=== PATIENT | male | born 1985 | race American Indian/Alaskan Native ===

== ENCOUNTER 2021-03-30 10:08 | Inpatient (IN) ==
--- NOTE | 2021-03-30 10:33 | Emergency Department Note ---
History of Present Illness General Chief complaint: Knee Injury/Pain Time Seen by Provider: 03/30/21 10:12 Source: patient Mode of arrival: ambulatory Limitations: language barrier (Interpretation was provided by one of our fluent Croatian-speaking nurses) History of Present Illness This patient is a healthy 85-year-old male comes with right knee pain. 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 came to a point Wednesday he had a small mount of purulent drainage. Is been red and tender anteriorly and slightly laterally. No fever at present but he says if fever chills and bone aches at night. He used Tylenol for pain this morning. Denies any allergies not had the Covid vaccine. No numbness or weakness. The pain is 7 out of 10 but goes to 10 out of 10 Home Medications Medication Instructions Recorded Confirmed Type acetaminophen 650 mg 1,300 mg PO Q12H PRN 03/30/21 03/30/21 History tablet,extended release (Tylenol Arthritis Pain) Allergies Allergy/AdvReac Type Severity Reaction Status Date / Time No Known Allergies Allergy Unverified 03/30/21 10:40 Past Med/Surg History Social History Smoking Status: Current every day smoker Tobacco Type: Cigarettes Preferred Language: Croatian Communication Tools: IPad Feels Safe at Home: Yes Immunizations: Past medical history denies any. Denies allergies denies diabetes Social historyshe is from [place] Review of Systems A total of 10 systems reviewed and were otherwise negative Physical Exam Vital Signs Vital Signs - 24 hr 03/30/21 10:08 03/30/21 11:06 03/30/21 11:35 Temperature 37.3 C Temperature Source Oral Pulse Rate 74 75 Pulse Rate [Right Finger] 74 Pulse Rate from SpO2 Sensor Pulse Rhythm Regular Pulse Rhythm [Right Finger] Pulse Strength [Right Finger] Respiratory Rate 18 20 20 Respiratory Effort / Characteristics Non-Labored Spontaneous Non-Labored Spontaneous Respiratory Depth Normal Respiratory Pattern Regular Blood Pressure 128/70 Blood Pressure [Right Arm] 128/70 Blood Pressure Mean 89 Blood Pressure Mean [Right Arm] 89 Blood Pressure Position Lying Blood Pressure Position [Right Arm] Lying Pulse Oximetry 99 98 Oxygen Delivery Method Room Air Room Air Sepsis Recent Fever Within 48 Hours Yes Sepsis New/Unexplained Change in Mental Status N/A Sepsis Action Taken by Nursing No Action Required 03/30/21 11:39 03/30/21 12:00 03/30/21 12:30 Temperature Temperature Source Pulse Rate 79 Pulse Rate [Right Finger] 71 81 Pulse Rate from SpO2 Sensor 79 Pulse Rhythm Pulse Rhythm [Right Finger] Regular Regular Pulse Strength [Right Finger] Normal Normal Respiratory Rate 20 20 18 Respiratory Effort / Characteristics Non-Labored Spontaneous Non-Labored Spontaneous Respiratory Depth Normal Normal Respiratory Pattern Regular Regular Blood Pressure 121/70 Blood Pressure [Right Arm] 128/69 120/83 Blood Pressure Mean 87 Blood Pressure Mean [Right Arm] 88 95 Blood Pressure Position Blood Pressure Position [Right Arm] Sitting Sitting Pulse Oximetry 99 99 97 Oxygen Delivery Method Room Air Room Air Sepsis Recent Fever Within 48 Hours Sepsis New/Unexplained Change in Mental Status Sepsis Action Taken by Nursing 03/30/21 13:00 03/30/21 13:30 03/30/21 14:00 Temperature Temperature Source Pulse Rate 74 79 83 Pulse Rate [Right Finger] Pulse Rate from SpO2 Sensor 73 78 82 Pulse Rhythm Pulse Rhythm [Right Finger] Pulse Strength [Right Finger] Respiratory Rate 21 22 17 Respiratory Effort / Characteristics Respiratory Depth Respiratory Pattern Blood Pressure 109/80 96/80 L 135/74 Blood Pressure [Right Arm] Blood Pressure Mean 89 85 94 Blood Pressure Mean [Right Arm] Blood Pressure Position Blood Pressure Position [Right Arm] Pulse Oximetry 100 99 96 Oxygen Delivery Method Sepsis Recent Fever Within 48 Hours Sepsis New/Unexplained Change in Mental Status Sepsis Action Taken by Nursing 03/30/21 14:30 03/30/21 15:00 Temperature Temperature Source Pulse Rate 88 78 Pulse Rate [Right Finger] Pulse Rate from SpO2 Sensor 81 Pulse Rhythm Pulse Rhythm [Right Finger] Pulse Strength [Right Finger] Respiratory Rate 18 16 Respiratory Effort / Characteristics Respiratory Depth Respiratory Pattern Blood Pressure 122/72 127/76 Blood Pressure [Right Arm] Blood Pressure Mean 88 93 Blood Pressure Mean [Right Arm] Blood Pressure Position Blood Pressure Position [Right Arm] Pulse Oximetry 98 Oxygen Delivery Method Sepsis Recent Fever Within 48 Hours Sepsis New/Unexplained Change in Mental Status Sepsis Action Taken by Nursing General: Well developed well nourished young male who appears in no acute distr ess, breathing comfortably on room air. Normal speech HEENT: Normal cephalic atraumatic. Pupils are equal round and reactive to light. Extraocular movements are intact. Oropharynx is pink with moist mucous membranes. No swelling of the mouth lips or tongue. Neck: Supple with a midline trachea. No meningeal signs or stiffness, no JVD or bruits. No Stridor. Chest: Clear to auscultation bilaterally. No wheezes or rhonchi. No increased work of breathing. Heart: Regular rate and rhythm without murmurs or gallops. Abdomen: Soft nontender, nondistended without rebound guarding or rigidity. Extremities: No cyanosis clubbing or edema. No calf tenderness or assymetry. The right knee is red anteriorly and below the joint. There is a small pustule. It is very tender with movement. Is tender laterally as well. I do not appreciate an effusion. There is no fluctuance or expressible pus Spine/Back. Non tender to palpation. No CVA tenderness Skin: Good turgor without rashes. Neurologic exam: Cranial nerves two through 12 are intact. Motor and sensation are intact and symmetrical throughout. Course Administered Medications Discontinued Medications Ceftriaxone Sodium (Ceftriaxone Sodium 1000mg/50ml D5w) Confirm Administered Dose 1,000 mg IV .STK-MED ONE Stop: 03/30/21 11:25 Last Admin: 03/30/21 11:36 Dose: 1,000 mg Documented by: [id number] Vancomycin HCl 1,250 mg/ (Sodium Chloride) 275 mls @ 200 mls/hr IV TODAY@1100 DIO Stop: 03/30/21 12:23 Last Infusion: 03/30/21 13:37 Dose: 0 mls/hr Documented by: [id number] Admin: 03/30/21 12:14 Dose: 200 mls/hr Documented by: [id number] Ceftriaxone Sodium 1,000 mg/ (Dextrose) 60 mls @ 120 mls/hr IV TODAY@1100 DIO Stop: 03/30/21 11:29 Last Admin: 03/30/21 11:36 Dose: Not Given Documented by: [id number] Sodium Chloride (Nss 1000ml) 1,000 mls @ 999 mls/hr IV .Q1H1M ONE Stop: 03/30/21 14:44 Last Infusion: 03/30/21 15:15 Dose: 0 mls/hr Documented by: [id number] Admin: 03/30/21 14:15 Dose: 999 mls/hr Documented by: [id number] Ketorolac Tromethamine (Ketorolac Tromethamine 15 Mg/Ml Vial) 15 mg IV NOW ONE Stop: 03/30/21 12:03 Last Admin: 03/30/21 12:14 Dose: 15 mg Documented by: [id number] Medical Decision Making Differential Diagnosis bursitis, septic bursitis, knee effusion, cellulitis, abscess Medical Records Attestation: I reviewed the patient's medical records. Home Medications Current Medication List: was personally reviewed by me Laboratory Data Attestation: I reviewed the patient's lab results. Result diagrams: 03/30/21 11:09 03/30/21 11:09 Lab Results 03/30/21 03/30/21 03/30/21 Range/Units 11:09 11:09 11:09 WBC 15.88 H (4.8-10.8) K/uL RBC 3.82 L (4.7-6.1) M/uL Hgb 13.3 L (14.0-18.0) g/dL Hct 37.6 L (42-52) % MCV 98.4 (80-100) fL MCH 34.8 H (25-34) pg MCHC 35.4 (32-36) g/dL RDW Std Deviation 42.7 (36.4-46.3) fL RDW Coeff of Nahid 12.0 (11.5-14.5) % Plt Count 255 (130-400) K/uL MPV 10.7 H (7.4-10.4) fL Immature Gran % (Auto) 0.2 % Neut % (Auto) 77.6 % Lymph % (Auto) 13.7 % [place] % (Auto) 7.6 % Eos % (Auto) 0.8 % Baso % (Auto) 0.1 % Neut # (Auto) 12.33 H (1.4-6.5) K/uL Lymph # (Auto) 2.18 (1.2-3.4) K/uL [place] # (Auto) 1.20 H (0.11-0.59) K/uL Eos # (Auto) 0.12 (0-0.5) K/uL Baso # (Auto) 0.02 (0-0.2) K/uL Immature Gran # (Auto) 0.03 H (0.00-0.02) K/uL ESR (0-15) mm/hr PT 9.8 (9.0-12.0) Seconds INR 1.0 (0.9-1.1) APTT 27.2 (21.0-31.0) Seconds PTT Ratio 1.0 Sodium 141 (136-145) mmol/L Potassium 3.8 (3.5-5.1) mmol/L Chloride 106 (98-107) mmol/L Carbon Dioxide 31 (21-32) mmol/L Anion Gap 4.0 (3-11) BUN 6 L (7-18) mg/dl Creatinine 0.80 (0.6-1.4) mg/dl Est Cr Clr Drug Dosing 97.6 ml/min Est GFR ( Amer) 132.3 ml/min Est GFR (Non-Af Amer) 114.1 ml/min BUN/Creatinine Ratio 7.7 L (10-20) Glucose 94 (70-99) mg/dl Lactate (0.4-2.0) mmol/L Calcium 8.9 (8.5-10.1) mg/dl Magnesium 2.3 (1.8-2.4) mg/dl Total Bilirubin 0.5 (0.2-1) mg/dl AST 126 H (15-37) U/L ALT 155 H (12-78) U/L Alkaline Phosphatase 111 (45-117) U/L C-Reactive Protein 14.10 H (0-0.29) mg/dl Total Protein 7.8 (6.4-8.2) gm/dl Albumin 3.4 (3.4-5.0) gm/dl Globulin 4.4 H (2.5-4.0) gm/dl Albumin/Globulin Ratio 0.8 L (0.9-2) COVID-19 Eval Order SARS-CoV-2 (PCR) (Negative) 03/30/21 03/30/21 03/30/21 Range/Units 11:09 11:22 12:34 WBC (4.8-10.8) K/uL RBC (4.7-6.1) M/uL Hgb (14.0-18.0) g/dL Hct (42-52) % MCV (80-100) fL MCH (25-34) pg MCHC (32-36) g/dL RDW Std Deviation (36.4-46.3) fL RDW Coeff of Nahid (11.5-14.5) % Plt Count (130-400) K/uL MPV (7.4-10.4) fL Immature Gran % (Auto) % Neut % (Auto) % Lymph % (Auto) % [place] % (Auto) % Eos % (Auto) % Baso % (Auto) % Neut # (Auto) (1.4-6.5) K/uL Lymph # (Auto) (1.2-3.4) K/uL [place] # (Auto) (0.11-0.59) K/uL Eos # (Auto) (0-0.5) K/uL Baso # (Auto) (0-0.2) K/uL Immature Gran # (Auto) (0.00-0.02) K/uL ESR 29 H (0-15) mm/hr PT (9.0-12.0) Seconds INR (0.9-1.1) APTT (21.0-31.0) Seconds PTT Ratio Sodium (136-145) mmol/L Potassium (3.5-5.1) mmol/L Chloride (98-107) mmol/L Carbon Dioxide (21-32) mmol/L Anion Gap (3-11) BUN (7-18) mg/dl Creatinine (0.6-1.4) mg/dl Est Cr Clr Drug Dosing ml/min Est GFR ( Amer) ml/min Est GFR (Non-Af Amer) ml/min BUN/Creatinine Ratio (10-20) Glucose (70-99) mg/dl Lactate 1.3 (0.4-2.0) mmol/L Calcium (8.5-10.1) mg/dl Magnesium (1.8-2.4) mg/dl Total Bilirubin (0.2-1) mg/dl AST (15-37) U/L ALT (12-78) U/L Alkaline Phosphatase (45-117) U/L C-Reactive Protein (0-0.29) mg/dl Total Protein (6.4-8.2) gm/dl Albumin (3.4-5.0) gm/dl Globulin (2.5-4.0) gm/dl Albumin/Globulin Ratio (0.9-2) COVID-19 Eval Order Covid19 at [facility] SARS-CoV-2 (PCR) (Negative) 03/30/21 Range/Units 12:34 WBC (4.8-10.8) K/uL RBC (4.7-6.1) M/uL Hgb (14.0-18.0) g/dL Hct (42-52) % MCV (80-100) fL MCH (25-34) pg MCHC (32-36) g/dL RDW Std Deviation (36.4-46.3) fL RDW Coeff of Nahid (11.5-14.5) % Plt Count (130-400) K/uL MPV (7.4-10.4) fL Immature Gran % (Auto) % Neut % (Auto) % Lymph % (Auto) % [place] % (Auto) % Eos % (Auto) % Baso % (Auto) % Neut # (Auto) (1.4-6.5) K/uL Lymph # (Auto) (1.2-3.4) K/uL [place] # (Auto) (0.11-0.59) K/uL Eos # (Auto) (0-0.5) K/uL Baso # (Auto) (0-0.2) K/uL Immature Gran # (Auto) (0.00-0.02) K/uL ESR (0-15) mm/hr PT (9.0-12.0) Seconds INR (0.9-1.1) APTT (21.0-31.0) Seconds PTT Ratio Sodium (136-145) mmol/L Potassium (3.5-5.1) mmol/L Chloride (98-107) mmol/L Carbon Dioxide (21-32) mmol/L Anion Gap (3-11) BUN (7-18) mg/dl Creatinine (0.6-1.4) mg/dl Est Cr Clr Drug Dosing ml/min Est GFR ( Amer) ml/min Est GFR (Non-Af Amer) ml/min BUN/Creatinine Ratio (10-20) Glucose (70-99) mg/dl Lactate (0.4-2.0) mmol/L Calcium (8.5-10.1) mg/dl Magnesium (1.8-2.4) mg/dl Total Bilirubin (0.2-1) mg/dl AST (15-37) U/L ALT (12-78) U/L Alkaline Phosphatase (45-117) U/L C-Reactive Protein (0-0.29) mg/dl Total Protein (6.4-8.2) gm/dl Albumin (3.4-5.0) gm/dl Globulin (2.5-4.0) gm/dl Albumin/Globulin Ratio (0.9-2) COVID-19 Eval Order SARS-CoV-2 (PCR) NEGATIVE (Negative) Imaging Data Attestation: I personally reviewed and interpreted this imaging study as follows: My Impression: Right knee x-rayno fracture. No large effusion seen. There is some soft tissue swelling in the area of the bursa Radiologist's Impression: Knee X-Ray 03/30/21 10:28 XR knee RT 1 or 2V routine CLINICAL HISTORY: right knee pain, ? bursitis COMPARISON: None FINDINGS: Alignment of the right knee is anatomic. No acute fracture. There is no osseous lesion. There may be a small joint effusion. Joint spaces are preserved. Note is made of pre and infrapatellar soft tissue swelling, most pronounced overlying the tibial tubercle. IMPRESSION: 1. No acute fracture. No osseous abnormality of the right knee. 2. Possible small right knee joint effusion. 3. Pre and infrapatellar soft tissue swelling. This may reflect bursitis. ACT 112: Negative or not required by law. Electronically signed by: Mike Zapata M.D. 03/30/2021 10:41 AM [facility] Narrative This Patient comes in as scribed above he has right knee pain it hurts worse with movement. I think he has more likely a bursitis possibly septic bursitis. IV access was established and blood work was obtained x-ray was obtained. He was reassessed frequently. He has had chills and body aches at home and does have a high white count and the area is red I think he does have a septic bursitis. X-ray does not show any large effusion in the joint. He was given IV Vanco and IV Rocephin as well as IV fluids. His sed rate and CRP are also elevated. I do think that he needs to be admitted/observed for IV antibiotics orthopedic consultation evaluations possible he could even need washout/surgery. I did discuss case Dr. Sauceda and they will see him in the hospital and the [facility] hospitalist also saw him will admit him for these measures. His Covid test was negative. Impression & Plan Septic infrapatellar bursitis of right knee, Acute knee pain, Lab test negative for COVID-19 virus Discharge Plan Visit Data Chief Complaint: Knee Injury/Pain ED Provider: Candido Stuart Discharge Problem: Septic infrapatellar bursitis of right knee, Acute knee pain, Lab test negative for COVID-19 virus Forms Stand Alone Forms: My [facility] [employer] Prescriptions Prescriptions: No Action acetaminophen [Tylenol Arthritis Pain] 650 mg Tablet Extended Release 1,300 mg PO Q12H PRN (Reason: Pain) RF: 0 Referrals Referrals: PCP,NO [Primary Care Provider] - Discharge Problem: Acute knee pain Qualifiers: Laterality: right Qualified Code(s): M25.561 - Pain in right knee
--- NOTE | 2021-03-30 10:43 | XRay Report ---
XR knee RT 1 or 2V routine CLINICAL HISTORY: right knee pain, ? bursitis COMPARISON: None FINDINGS: Alignment of the right knee is anatomic. No acute fracture. There is no osseous lesion. Th ere may be a small joint effusion. Joint spaces are preserved. Note is made of pre and infrapatellar soft tissue swelling, most pronounced overlying the tibial tubercle. IMPRESSION: 1. No acute fracture. No osseous abnormality of the right knee. 2. Possible small right knee joint effusion. 3. Pre and infrapatellar soft tissue swelling. This may reflect bursitis. ACT 112: Negative or not required by law. Electronically signed by: Mike Zapata M.D. 03/30/2021 10:41 AM
[2021-03-30] MEDS ORDERED: VANCOMYCIN HCL 1,250 MG in SODIUM CHLORIDE 0.9% 250 ML IV SCH (11:00)
[2021-03-30] MEDS ORDERED: cefTRIAXone SODIUM 1,000 MG in DEXTROSE 5% 50 ML IV SCH (11:00)
[2021-03-30] MEDS ORDERED: cefTRIAXone SODIUM 1000MG/50ML D5W IV ONE (11:24)
[2021-03-30 11:37] LABS: Basophils # (auto) 0.02 K/uL (0-0.2); Basophils % (auto) 0.1 %; Eosinophils # (auto) 0.12 K/uL (0-0.5); Eosinophils % (auto) 0.8 %; Hematocrit (blood only) 37.6 % (42-52); Hemoglobin 13.3 g/dL (14.0-18.0); Immature Granulocytes # (auto) 0.03 K/uL (0.00-0.02); Immature Granulocytes % (auto) 0.2 %; Lymphocytes # (auto) 2.18 K/uL (1.2-3.4); Lymphocytes % (auto) 13.7 %; Mean Corpuscular Hemoglobin 34.8 pg (25-34); Mean Corpuscular Hgb Conc 35.4 g/dL (32-36); Mean Corpuscular Volume 98.4 fL (80-100); Mean Platelet Volume 10.7 fL (7.4-10.4); Monocytes % (auto) 7.6 %; Neutrophils # (auto) 12.33 K/uL (1.4-6.5); Neutrophils % (auto) 77.6 %; Platelet Count 255 K/uL (130-400); RDW Standard Deviation 42.7 fL (36.4-46.3); Red Blood Count 3.82 M/uL (4.7-6.1); White Blood Count 15.88 K/uL (4.8-10.8)
[2021-03-30 11:53] LABS: Albumin Level 3.4 gm/dl (3.4-5.0); BUN Creatinine Ratio 7.7 (10-20); Calcium 8.9 mg/dl (8.5-10.1); Creatinine Clr Calc Pharmacy 97.6 ml/min; Est GFR (African American) 132.3 ml/min; Est GFR (Non-African American) 114.1 ml/min; Magnesium 2.3 mg/dl (1.8-2.4); Potassium 3.8 mmol/L (3.5-5.1)
[2021-03-30 11:56] LABS: Albumin Globulin Ratio 0.8 (0.9-2); Bilirubin,Total 0.5 mg/dl (0.2-1); C Reactive Protein 14.1 mg/dl (0-0.29); Globulin 4.4 gm/dl (2.5-4.0); Partial Thromboplastin Time 27.2 Seconds (21.0-31.0); Prothrombin Time 9.8 Seconds (9.0-12.0); Total Protein 7.8 gm/dl (6.4-8.2)
[2021-03-30] MEDS ORDERED: KETOROLAC TROMETHAMINE 15 MG/ML VIAL IV ONE (12:02)
[2021-03-30] MEDS ORDERED: SODIUM CHLORIDE 0.9% 1000ML 1,000 ML IV ONE (13:44)
[2021-03-30] MEDS ORDERED: VANCOMYCIN CONSULT ACTIVE PRN (16:19)
--- NOTE | 2021-03-30 17:59 | History & Physical Report ---
Date of Service March 30, 2021 Assessment & Plan (1) Septic infrapatellar bursitis of right knee: Plan: consult ortho. Place on antibitics vanco and ceftriaxone. will monitor cbc. WBC is currently elevated. may require tdap vaccine as it has been over 10 years since previous vaccine was beforte 10 year temi may hold until closer to discharge. Admission and Anticipated Discharge Date Admission Date: March 30, 2021 History of Present Illness Chief Complaint: right knee pain Primary Care Provider: NO PCP Micronesian speaking patient arrives to ER with subjective fever and right knee pain. 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 He reports he noticed his right knee became irritated on Wednesday and slowly this progress. He noticed the right knee has become red and tender to touch. He reports when he is working, he puts his knoee on the ground and he felt that a metal on the ground may have scretched his knee. He used Tylenol for pain this morning. Denies any allergies not had the Covid vaccine. No numbness or weakness. The pain is 7 out of 10 but goes to 10 out of 10 Allergies Allergy/AdvReac Type Severity Reaction Status Date / Time No Known Allergies Allergy Unverified 03/30/21 10:40 Home Medications Medication Instructions Recorded Confirmed Type acetaminophen 650 mg 1,300 mg PO Q12H PRN 03/30/21 03/30/21 History tablet,extended release (Tylenol Arthritis Pain) Past Med/Surg History Social History Smoking Status: Light tobacco smoker Tobacco Type: Cigarettes Hx Alcohol Use: Yes Hx Substance Use: Yes Preferred Language: Micronesian Communication Ability: Effective Communication Tools: IPad Chronometer Tester Required: Yes Beliefs That Will Affect Care: None Current Living Situation: Family Other Information That Helps Us Care for You: No Feels Safe at Home: Yes Safety Concerns: Feels Safe At This Time Assistive Devices: None Review of Systems Constitutional: + fever and + sweats Eyes: no blind spots and no diplopia Ear, Nose, Mouth, Throat: no ear pain and no ear trauma Respiratory: no cough and no change in sputum Cardiovascular: no chest pain and no chest pain with activity Gastrointestinal: no abdominal pain Genitourinary: no urinary frequency or no post-void dribbling Musculoskeletal: + joint pain Integumentary: no acne Psychiatric: no behavioral changes Endocrine: no polydipsia Hematologic / Lymphatic: no coagulopathy Allergy / Immunological: no lip swelling Physical Exam Constitutional: WD/WN, vitals as above Eyes: PERRL, conjunctivae normal, anicteric sclerae ENMT: external ear and nose normal, oropharynx normal Neck: trachea midline, no thyromegaly Respiratory: normal respiratory effort, lungs clear to auscultation Cardiovascular: RRR, no murmur, no edema Gastrointestinal (Abdomen): normal bowel sounds, soft, nontender, no hepatosplenomegaly Musculoskeletal: no cyanosis or clubbing, extremities motor strength 5/5 (redness around right infrapatellar bursa, tender to palpation.) Skin: + lesion (as noticed above. erlinda cut on prepatellar bursa) Neurologic: PERRL, EOMI, accommodation nl, no face palsy, no dysarthria Psychiatric: A+Ox3, euthymic affect Genitourinary: no testicular masses, no penis abnormality Results & Data Results & Data ([facility]) Vital Signs (Past 12 Hours) Vital Signs Temp Pulse Pulse Resp BP BP Pulse Ox 03/30/21 17:31 78 20 118/73 99 03/30/21 15:00 78 16 127/76 98 03/30/21 14:30 88 18 122/72 03/30/21 14:00 83 17 135/74 96 03/30/21 13:30 79 22 96/80 L 99 03/30/21 13:00 74 21 109/80 100 03/30/21 12:30 79 18 121/70 97 03/30/21 12:00 81 20 120/83 99 03/30/21 11:39 71 20 128/69 99 03/30/21 11:35 75 20 98 03/30/21 11:06 20 03/30/21 10:08 37.3 C 74 74 18 128/70 128/70 99 PG Care Time/CCT Total # of Minutes Spent Total Time Spent with Patient: Total time spent is greater than 50% in coordination of care (as documented) at patient's floor/unit and/or counseling patient: Coding Level of Care Code 71630 Initial Inpt Care Lvl 2 Diagnoses Septic infrapatellar bursitis of right knee M71.161; B96.89
[2021-03-30] MEDS: ACETAMINOPHEN 325 MG TAB PO PRN ×2 (18:18→23:44)
--- NOTE | 2021-03-30 19:26 | Pharmacy Report ---
Pharmacy Abx Initial Consult - Date of Service March 30, 2021 - Pharmacy Dosing Scope Date of Consult: 03/30/21 Consultation requested by: Dr. GREGG Pharmacy is consulted to initiate Vancomycin IV dosing therapy, order appropriate labs and adjust drug dose/frequency. - Subjective The patient is a 35 year old M admitted on 03/30/21 16:22. - Objective Height: 5 ft 2 in Weight: 58.7 kg Vital Signs (Past 12hrs): Vital Signs Temp Pulse Pulse Resp BP BP Pulse Ox 03/30/21 18:05 37.9 C H 82 18 138/88 100 03/30/21 17:31 78 20 118/73 99 03/30/21 15:00 78 16 127/76 98 03/30/21 14:30 88 18 122/72 03/30/21 14:00 83 17 135/74 96 03/30/21 13:30 79 22 96/80 L 99 03/30/21 13:00 74 21 109/80 100 03/30/21 12:30 79 18 121/70 97 03/30/21 12:00 81 20 120/83 99 03/30/21 11:39 71 20 128/69 99 03/30/21 11:35 75 20 98 03/30/21 11:06 20 03/30/21 10:08 37.3 C 74 74 18 128/70 128/70 99 Lab Results (24hrs): Laboratory Tests (24 Hours) 03/30/21 03/30/21 03/30/21 11:09 11:09 11:09 WBC 15.88 H Neut # (Auto) 12.33 H ESR 29 H Creatinine 0.80 Est Cr Clr Drug Dosing 97.6 C-Reactive Protein 14.10 H Micro Results: 03/30/21 11:09 Aerobic Blood Culture - Pending Blood Anaerobic Blood Culture - Pending 03/30/21 11:03 Aerobic Blood Culture - Pending Blood Anaerobic Blood Culture - Pending - Assessment & Plan Assessment 35 year old M with right knee redness and possible septic bursitis in this joint Plan Vancomycin for treatment of septic bursitis Vancomycin IV * Dosing by Vancomycin AUC Nomogram * Loading dose: 1250 mg (21.3 mg/kg) * Maintenance dose: 750 mg IV (12.8 mg/kg) every 8 hours per dosing nomogram * Goal trough level for septic bursitis: 13 to 17 mcg/mL * Trough level ordered for Thursday April 01, 2021 prior to the noon dose Pharmacy will continue to follow and will adjust dose/frequency as necessary. Thank you.
[2021-03-30] MEDS: VANCOMYCIN HCL 750 MG in SODIUM CHLORIDE 0.9% 250 ML IV SCH (19:56)
[2021-03-31] MEDS: VANCOMYCIN HCL 750 MG in SODIUM CHLORIDE 0.9% 250 ML IV SCH ×3 (05:14→19:38)
[2021-03-31 07:08] LABS: Creatinine Clr Calc Pharmacy 114.9 ml/min; Est GFR (African American) 141.4 ml/min
[2021-03-31] MEDS: ACETAMINOPHEN 325 MG TAB PO PRN ×3 (08:31→19:37)
[2021-03-31] MEDS: SODIUM CHLOR 0.45% + 20MEQ KCL 20 MEQ/1,000 ML BAG IV SCH ×2 (10:12→19:24)
[2021-03-31] MEDS: cefTRIAXone SODIUM 1,000 MG in DEXTROSE 5% 50 ML IV SCH (11:56)
[2021-03-31] MEDS ORDERED: ONDANSETRON INJ 2 MG/ML 2 ML VIAL IV PRN (12:03)
--- NOTE | 2021-03-31 12:06 | Hospitalist Progress Note ---
Date of Service March 31, 2021 Assessment & Plan (1) Septic infrapatellar bursitis of right knee: Plan: Continue vancomycin and ceftriaxone, blood cultures negative to date. Acetaminophen and dilaudid for pain. TDaP prior to discharge Appreciate orthopedics consult. 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 Occasional cramping in his foot. Right knee pain currently 6/10. Fever and chills reported overnight. Seen by orthopedics PA this morning and kept NPO for possible I&D today. Review of Systems Review of Systems: All systems reviewed & are unremarkable except as noted in HPI & below Physical Exam Constitutional: WD/WN, vitals as above Eyes: + anicteric sclerae; normal pupil size ENMT: Mouth: oral mucous membranes not dry Neck: trachea midline, no thyromegaly Respiratory: normal respiratory effort, lungs clear to auscultation Cardiovascular: RRR, no murmur, no edema Gastrointestinal (Abdomen): normal bowel sounds, soft, nontender, no hepatosplenomegaly Musculoskeletal: Pustules over inferior part of right knee with surrounding erythema extending approximately 10cm longitudinally. NV intact distally. Psychiatric: A+Ox3, euthymic affect Results & Data Results & Data ([facility]) Vital Signs (Past 12 Hours) Vital Signs Temp Pulse Resp BP Pulse Ox 03/31/21 11:47 36.9 C 03/31/21 07:38 37.2 C 84 16 135/83 99 PG Care Time/CCT Total # of Minutes Spent Total Time Spent with Patient: Total time spent is greater than 50% in coordination of care (as documented) at patient's floor/unit and/or counseling patient: Coding Level of Care Code 73044 Subseq Hosp Care Lvl 2 Diagnoses Septic infrapatellar bursitis of right knee M71.161; B96.89
[2021-03-31] MEDS: HYDROmorphone INJ 0.5 MG/0.5 ML SYR IV PRN ×2 (12:17→18:29)
--- NOTE | 2021-03-31 15:21 | Anesthesiology Consultation ---
Date of Service March 31, 2021 Assessment & Plan (1) Encounter for pre-operative examination: Chart Review Chart Review: Acceptable Risk for Surgery and Patient NOT seen in Pre Admission Testing Consults Requested none History Surgery Operation Date: 03/31/21 07:00 Proposed Procedures p Right Incision and Drainage Prepatellar Septic Bursitis - Saravanan Askew MD Height/Weight Height: 5 ft 2 in Weight: 58.7 kg Allergies Allergy/AdvReac Type Severity Reaction Status Date / Time No Known Allergies Allergy Unverified 03/30/21 10:40 Medications Home Medications Medication Instructions Recorded Confirmed Last Taken acetaminophen 650 mg 1,300 mg PO Q12H PRN 03/30/21 03/30/21 03/30/21 tablet,extended release (Tylenol Arthritis Pain) Active Medications Generic Name Dose Route Start Last Admin Trade Name Freq PRN Reason Stop Dose Admin Acetaminophen 650 mg 03/30/21 17:57 03/31/21 14:43 Acetaminophen 325 Mg Tab PO 04/29/21 17:56 650 mg Q4H PRN Administration pain/fever Hydromorphone HCl 0.5 mg 03/31/21 11:40 03/31/21 12:17 Hydromorphone Inj 0.5 Mg/0.5 Ml Syr IV 04/14/21 11:39 0.5 mg Q2H PRN Administration Pain Vancomycin HCl 750 mg/ Sodium 265 mls @ 125 mls/hr 03/30/21 20:00 03/31/21 14:52 Chloride IV 04/06/21 11:59 Infused Q8H DIO Infusion Protocol Ceftriaxone Sodium 1,000 mg/ 50 mls @ 100 mls/hr 03/31/21 11:00 03/31/21 12:44 Dextrose IV 04/07/21 10:59 Infused Q24H DIO Infusion Protocol Potassium Chloride/Sodium Chloride 20 meq in 1,000 mls @ 125 mls/hr 03/31/21 08:15 03/31/21 12:44 1/2 Nss + 20meq Kcl 1000ml IV 04/30/21 08:14 125 mls/hr .Q8H DIO Infusion Ondansetron HCl 4 mg 03/31/21 12:03 03/31/21 12:08 Ondansetron Inj 2 Mg/Ml 2 Ml Vial IV 04/30/21 12:02 4 mg Q4H PRN Administration Nausea Past Medical History No significant PMH Past Surgical History No significant past surgical history Social History Smoking Status: Light tobacco smoker tobacco type: cigarettes Hx Alcohol Use: Yes alcohol intake frequency: holidays/special occasions only Hx Substance Use: Yes substance use type: marijuana Physical Exam Vital Signs Last Vital Signs Temp 36.9 C 03/31/21 11:47 Pulse 84 03/31/21 07:38 Resp 16 03/31/21 07:38 BP 135/83 03/31/21 07:38 Pulse Ox 99 03/31/21 07:38 Testing Laboratory Results 03/30/21 11:09 03/31/21 06:21 PT 9.8 Seconds (9.0-12.0) 03/30/21 11:09 INR 1.0 (0.9-1.1) 03/30/21 11:09 APTT 27.2 Seconds (21.0-31.0) 03/30/21 11:09 03/30/21 11:09 Aerobic Blood Culture - Preliminary Blood No growth in Aerobic bottle after 24 hours. Anaerobic Blood Culture - Preliminary No growth in Anaerobic bottle after 24 hours. 03/30/21 11:03 Aerobic Blood Culture - Preliminary Blood No growth in Aerobic bottle after 24 hours.
--- NOTE | 2021-04-01 00:45 | Consultation Report ---
DATE OF CONSULTATION: 03/31/2021. 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 Garcia regarding right knee pain, redness, and swelling. 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 He was concerned that he may have knelt on metal shavings which cut his k nee. He took Tylenol prior to admission; however, it failed to give him any improvement. He present ed to the hospital, evaluated by the ER service and then admitted to the hospitalist service for IV a ntibiotics due to cellulitis and presumed prepatellar bursitis. Placed on IV antibiotics. The patie nt states that he is feeling somewhat better after being admitted with the IV antibiotics; however, jacoby more continues to have pain, swelling with obvious pustules forming on the right anterior knee. PAST MEDICAL HISTORY: Denies. PAST SURGICAL HISTORY: Noncontributory. ALLERGIES: No known drug allergies. MEDICATIONS: Acetaminophen. SOCIAL HISTORY: He smokes cigarettes daily, drinks alcohol occasionally. Denies drug use. He is [facility]. 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 PHYSICAL EXAMINATION: He is a 35-year-old [place] gentleman presents with two friends at bedside. He is Syriac speaking. He is alert and oriented x3. His speech is clear and fluent. Affect is sonia ropriate. I did communicate with him in Syriac with good understanding. The focused exam of the ri t knee demonstrates 5-6 small fluctuant pustules that have formed in the anterior aspect of the rig ht knee in the prepatellar region. Tender to palpation. Surrounding erythematous base with tenderne ss to palpation. No tenderness of the knee joint capsule, medial, lateral or posterior. Range of mo tion of the knee is somewhat limited at terminal extension and terminal flexion. However, mid range of motion is unaffected. Dorsalis pedis and posterior pulses are 2/4 bilaterally. Cap refill is deon sk, less than 2 seconds. LABORATORY AND IMAGING DATA: Reviewed. IMPRESSION: Prepatellar bursitis, likely septic with folliculitis. Likely abrasion secondary to dir ect contact between the right knee and construction site. RECOMMENDATIONS: Continue IV antibiotics. Will sterilely prep and incise and drain septic follicles and bursa, right knee at bedside. Continue analgesics as needed. Specimen sent for laboratory eval uation for aerobic, anaerobic Gram stain. PROCEDURE NOTE: After obtaining verbal consent from the patient, the right knee was then sterilely p repped with Betadine and alcohol, and a #11 blade scalpel was then used to unroof 6 separate follicul ar areas of obvious purulence. Careful extrusion was then performed and this was then collected for aerobic, anaerobic Gram stain specimen, which was sent to the laboratory. Next, 18-gauge needle was then placed into the prepatellar bursa and used to withdraw a scant amount of fluid with murky haze. No foul odor. Site was then carefully massaged to allow extrusion of all purulent material and then a sterile compressive dressing consisting of 4 x 4s and a postsurgical pad, Kerlix roll, and an Arpan wrap was applied. The patient tolerated the procedure well and we will reevaluate after bacterial sp ecies are identified. Thank you for the opportunity to consult in the care of this patient. Job ID: [id number]
[2021-04-01] MEDS: HYDROmorphone INJ 0.5 MG/0.5 ML SYR IV PRN ×2 (00:55→05:58)
[2021-04-01] MEDS: SODIUM CHLOR 0.45% + 20MEQ KCL 20 MEQ/1,000 ML BAG IV SCH ×3 (03:01→19:05)
[2021-04-01] MEDS: VANCOMYCIN HCL 750 MG in SODIUM CHLORIDE 0.9% 250 ML IV SCH ×2 (03:01→12:49)
[2021-04-01 06:34] LABS: Basophils # (auto) 0.02 K/uL (0-0.2); Basophils % (auto) 0.1 %; Eosinophils # (auto) 0.08 K/uL (0-0.5); Eosinophils % (auto) 0.5 %; Hematocrit (blood only) 35.4 % (42-52); Hemoglobin 12.8 g/dL (14.0-18.0); Immature Granulocytes # (auto) 0.03 K/uL (0.00-0.02); Immature Granulocytes % (auto) 0.2 %; Lymphocytes # (auto) 2.38 K/uL (1.2-3.4); Lymphocytes % (auto) 16.2 %; Mean Corpuscular Hemoglobin 34.2 pg (25-34); Mean Corpuscular Hgb Conc 36.2 g/dL (32-36); Mean Corpuscular Volume 94.7 fL (80-100); Monocytes # (auto) 1.22 K/uL (0.11-0.59); Monocytes % (auto) 8.3 %; Neutrophils % (auto) 74.7 %; Platelet Count 293 K/uL (130-400); RDW Coefficient of Variation 11.5 % (11.5-14.5); RDW Standard Deviation 39.5 fL (36.4-46.3); Red Blood Count 3.74 M/uL (4.7-6.1); White Blood Count 14.73 K/uL (4.8-10.8)
[2021-04-01 07:02] LABS: Albumin Globulin Ratio 0.7 (0.9-2); Bilirubin,Total 0.7 mg/dl (0.2-1); Calcium 8.8 mg/dl (8.5-10.1); Creatinine Clr Calc Pharmacy 108.5 ml/min; Est GFR (African American) 138.1 ml/min; Est GFR (Non-African American) 119.2 ml/min; Globulin 4.3 gm/dl (2.5-4.0); Potassium 3.7 mmol/L (3.5-5.1); Total Protein 7.3 gm/dl (6.4-8.2)
[2021-04-01] MEDS: cefTRIAXone SODIUM 1,000 MG in DEXTROSE 5% 50 ML IV SCH (10:53)
[2021-04-01] MEDS ORDERED: VANCOMYCIN TROUGH ONE (11:30)
[2021-04-01] MEDS: VANCOMYCIN HCL 1,000 MG in SODIUM CHLORIDE 0.9% 250 ML IV SCH ×2 (13:40→20:11)
--- NOTE | 2021-04-01 13:44 | Pharmacy Report ---
Pharmacy Vanc AUC Short Note - Date of Service April 01, 2021 - Assessment & Plan Assessment 35 year old M receiving vancomycin and ceftriaxone for treatment of septic infrapatellar bursitis of right knee secondary to construction-site injury. Blood cultures show no growth at 48 hours. Bedside I&D completed today and right knee culture is now pending. Day # 3 of antimicrobial therapy. Plan Vancomycin * AUC/ARNOL is the preferred PK/PD target for vancomycin * AUC guided dosing is effective and associated with decreased risk of nephrotoxicity compared to traditional trough targets * Trough level of 7.8 mcg/mL is predicted to be below target AUC/ARNOL of 400-600 mg/L.hr * Change to 1000 mg IV every 8 hours, which is predicted to achieve AUC/ARNOL of 400-600 mg/L.hr with 9% risk of nephrotoxicity * Trough level ordered for: 04/03/21 Ceftriaxone * 1 g IV q24h - remains appropriate Pharmacy will continue to follow and will adjust dose/frequency as necessary. Thank you.
--- NOTE | 2021-04-01 14:52 | History & Physical Bridge Note ---
Date of Service April 01, 2021 History & Physical Bridge Note I have examined the patient, reviewed the History & Physical and in the interval since the performance of the History & Physical I have noted the following changes of clinical significance: no changes noted
[2021-04-01] MEDS ORDERED: ATROPINE SULFATE 0.1 MG/ML 10ML SYR IV PRN (14:57)
[2021-04-01] MEDS ORDERED: ePHEDrine sulfate 50 MG/ML AMP IV PRN (14:57)
[2021-04-01] MEDS ORDERED: fentaNYL citrate 100 MCG/2 ML VIAL IV PRN (14:57)
[2021-04-01] MEDS ORDERED: ONDANSETRON INJ 2 MG/ML 2 ML VIAL IV PRN ×2 (14:57→18:01)
--- NOTE | 2021-04-01 15:08 | History & Physical Bridge Note ---
Date of Service April 01, 2021 History & Physical Bridge Note I have examined the patient, reviewed the History & Physical and in the interval since the performance of the History & Physical I have noted the following changes of clinical significance: Persistent right knee worsening cellulitis with prepatellar bursitis plan for incision and drainage right prepatellar bursa possible postoperative packing antibiotics
--- NOTE | 2021-04-01 15:21 | Orthopedic Progress Note ---
Date of Service April 01, 2021 Assessment & Plan (1) Septic infrapatellar bursitis of right knee: Plan: No interval change compared to yesterday. Possibly slightly more fluctuant today. Gram stain results as noted. Gram-positive cocci. Culture pending. Plan for irrigation and debridement of his right septic prepatellar bursa. This was discussed with the patient through the mate fishing vessel. Patient understands and is eager to have this taken care of. Dr. Coffman will be performing I&D this afternoon. Admission and Anticipated Discharge Date Admission Date: March 30, 2021 Subjective Patient awake and alert lying in bed. Nursing present with caterpillar operator iPad. Successful connection with caterpillar operator and discussed with the patient how has been doing. Since the aspiration of his prepatellar bursa, he has had continued pain in the 1 area of the prepatellar bursa that has not gotten any better. No other complaints. Physical Exam Physical Exam: There is no interval change compared to yesterday. He appears to have more fluctuance now in the prepatellar bursa area than he did yesterday. The small pustules have been opened it was done last night by Dr. Sauceda. He continues to have darkened erythema around the prepatellar bursa area and the lateral aspect. There is no purulent drainage noted. Calves are soft nontender. Neurovascular intact. Toes are mobile. Results & Data ([facility]) Vital Signs (Past 12 Hours) Vital Signs Temp Pulse Resp BP Pulse Ox 04/01/21 15:02 37.1 C 79 16 136/62 97 04/01/21 07:34 37.2 C 75 18 116/72 96 Diagnostic Findings Name: JASPER MCMULLEN Acct: [id number] Status: [place] 1985 [facility] [place]: [place] Age: 35 Sex: M Dis Date: Loc: Medical/Surgical/Ortho 3 [facility] [place]/Bed: W357-2 Spec: [id number] Collected: 04/01/21-UNK Received: 04/01/[address]: Osmin Mccoy PA-C Copy To: Luigi Garcia M.D. Source: Knee,Right OV Order: Ordered: Aer/Esme Cult/Sm Comments: Comment Right Prepatellar Bursa Procedure Result Verified Site Gram Stain Final 04/01/21-1236 Gram Stain Result Rare Epithelial Cells Rare WBCs Seen Rare Gram Positive Cocci Aero/Esme Cult PENDING
[2021-04-01] MEDS ORDERED: LIDOCAINE 2% 2 ML VIAL/AMP(20MG/ML) INFIL ONE (15:27)
[2021-04-01] MEDS ORDERED: MIDAZOLAM HCL 1 MG/ML 2ML VIAL ONE (15:27)
[2021-04-01] MEDS ORDERED: ONDANSETRON INJ 2 MG/ML 2 ML VIAL ONE (15:27)
[2021-04-01] MEDS ORDERED: PROPOFOL IV EMULSION 10 MG/ML 20 ML VIAL IV ONE (15:27)
[2021-04-01] MEDS ORDERED: fentaNYL citrate 100 MCG/2 ML VIAL ONE ×2 (15:27→16:34)
[2021-04-01] MEDS ORDERED: KETOROLAC 30 MG/ML VIAL ONE (16:35)
--- NOTE | 2021-04-01 16:47 | Operative Report ---
Post Operative Report Pre & Post Diagnosis Right knee cellulitis with prepatellar infection and infected bursa Operation Date: 03/31/21 07:00 Right knee with cellulitis and prepatellar infection infected bursa <No data on this case meets the specified criteria> Operation Date: 04/01/21 13:40 <No data on this case meets the specified criteria> I identified the patient and participated in the time-out.: Yes Procedure I&D right prepatellar bursa with wound closure partially incoordinate iodoform packing Operation Date: 03/31/21 07:00 <No data on this case meets the specified criteria> Operation Date: 04/01/21 13:40 <No data on this case meets the specified criteria> Surgeon Louie Coffman DO Mechanical Sound Technician None Estimated Blood Loss 3 Findings Consistent with Post-Op Diagnosis Patient presents with cellulitis and purulent prepatellar bursal area right anterior knee Specimens Culture aerobic anaerobic Drains Quarter inch iodoform packing Anesthesia Type General Complications none Disposition Accompanied Patient To Recovery: No Disposition: Recovery Room Indications Purulent drainPatient presents with seropurulent needs coming from the anterior knee wound measuring approximately 2 x 3 cm Description of Procedure Patient presents with a 2 x 3 cm area of purulent drainage from the anterior prepatellar bursa after the proper prepping and draping a 3 cm incision was made purulent material was evacuated from the bursal area the wound was irrigated with copious amounts of sterile saline solution via pulsatile lavage cultures have been taken prior to this a loose closure was performed with the quarter- inch packing placed in the deep wound sterile compressive dressing was placed patient taken recovery stable condition I attest to the content of the Intraoperative Record and any orders documented therein. Any exceptions are noted below.
--- NOTE | 2021-04-01 17:19 | Anesthesiology Progress Note ---
Date of Service April 01, 2021 Anesthesia Post Procedure Vital Signs Vital Signs: Temp Pulse Pulse Resp BP BP Pulse Ox 04/01/21 17:10 36.4 C L 64 16 128/81 99 04/01/21 17:00 70 16 134/71 100 04/01/21 16:52 36.5 C 68 12 121/73 100 04/01/21 15:02 37.1 C 79 16 136/62 97 04/01/21 07:34 37.2 C 75 18 116/72 96 04/01/21 03:04 37.1 C 03/31/21 21:47 38.6 C H 72 18 103/58 L 97 Pain Intensity Right Knee: Pain Intensity: 3 Transfer of Care Handoff Completed per policy Notes Mental Status: alert / awake / arousable Patient Amnestic to Procedure: Yes Nausea / Vomiting: adequately controlled Pain: adequately controlled Airway Patency, RR, SpO2: stable & adequate BP & HR: stable & adequate Hydration State: stable & adequate Anesthetic Complications: no major complications apparent and Pt Satisfied with anesthetic care
[2021-04-01] MEDS ORDERED: bisacodyL 10 MG SUPP PR PRN (18:01)
[2021-04-01] MEDS ORDERED: MAGNESIUM HYDROXIDE SUSP 30 ML UDC PO PRN (18:01)
[2021-04-01] MEDS ORDERED: NALOXONE HCL 0.4 MG/1 ML VIAL/CARP IV PRN (18:01)
[2021-04-01] MEDS ORDERED: METOCLOPRAMIDE HCL INJ 5 MG/ML 2 ML VIAL IV PRN (18:01)
[2021-04-01] MEDS ORDERED: diphenhydrAMINE Capsule 25 MG CAP PO PRN (18:01)
[2021-04-01] MEDS: SODIUM CHLORIDE 0.9% 1000ML 1,000 ML IV SCH (18:41)
[2021-04-01] MEDS: KETOROLAC 30 MG/ML VIAL IV SCH (18:41)
[2021-04-01] MEDS: DOCUSATE SODIUM 100 MG CAP PO SCH (20:05)
[2021-04-01] MEDS: SENNA 8.6 MG TAB PO SCH (20:05)
--- NOTE | 2021-04-01 21:17 | Hospitalist Progress Note ---
Date of Service April 01, 2021 Assessment & Plan (1) Septic infrapatellar bursitis of right knee: Plan: Continue vancomycin and ceftriaxone, blood cultures negative to date. Bedside wound gram stain with rare gram positive cocci - culture pending Surgical culture pending Acetaminophen and Dilaudid for pain. TDaP prior to discharge Appreciate orthopedics consult management. Admission and Anticipated Discharge Date Admission Date: March 30, 2021 Subjective Patient seen after surgery. Doing well. No complaints. Review of Systems Review of Systems: All systems reviewed & are unremarkable except as noted in HPI & below Physical Exam Constitutional: WD/WN, vitals as above Eyes: + anicteric sclerae; normal pupil size ENMT: Mouth: oral mucous membranes not dry Neck: trachea midline, no thyromegaly Respiratory: normal respiratory effort, lungs clear to auscultation Cardiovascular: RRR, no murmur, no edema Gastrointestinal (Abdomen): normal bowel sounds, soft, nontender, no hepatosplenomegaly Musculoskeletal: Surgical dressing not removed. Clean dry intact. NV intact distally in right foot beyond dressing. Psychiatric: A+Ox3, euthymic affect Results & Data Results & Data ([facility]) Vital Signs (Past 12 Hours) Vital Signs Temp Pulse Pulse Resp BP Pulse Ox 04/01/21 21:11 36.7 C 54 L 22 111/69 96 04/01/21 20:14 36.7 C 62 20 117/55 L 95 04/01/21 19:19 35.8 C L 69 22 110/60 96 04/01/21 18:45 36.7 C 81 20 116/65 96 04/01/21 18:15 36.7 C 74 20 124/76 95 04/01/21 18:00 36.7 C 69 20 128/74 94 04/01/21 17:45 36.8 C 66 20 134/77 96 04/01/21 17:20 67 16 119/68 99 04/01/21 17:10 36.4 C L 64 16 128/81 99 04/01/21 17:00 70 16 134/71 100 04/01/21 16:52 36.5 C 68 12 121/73 100 04/01/21 15:02 37.1 C 79 16 136/62 97 PG Care Time/CCT Total # of Minutes Spent Total Time Spent with Patient: Total time spent is greater than 50% in coordination of care (as documented) at patient's floor/unit and/or counseling patient: Coding Level of Care Code 76514 Subseq Hosp Care Lvl 1 Diagnoses Septic infrapatellar bursitis of right knee M71.161; B96.89
[2021-04-02] MEDS: KETOROLAC 30 MG/ML VIAL IV SCH ×3 (00:18→13:53)
[2021-04-02] MEDS: VANCOMYCIN HCL 1,000 MG in SODIUM CHLORIDE 0.9% 250 ML IV SCH ×3 (04:03→20:38)
[2021-04-02] MEDS: SODIUM CHLORIDE 0.9% 1000ML 1,000 ML IV SCH (04:15)
[2021-04-02 07:44] LABS: Hematocrit (blood only) 35.8 % (42-52); Hemoglobin 12.5 g/dL (14.0-18.0); Mean Corpuscular Hemoglobin 33.3 pg (25-34); Mean Corpuscular Hgb Conc 34.9 g/dL (32-36); Mean Corpuscular Volume 95.5 fL (80-100); Platelet Count 295 K/uL (130-400); RDW Coefficient of Variation 11.5 % (11.5-14.5); RDW Standard Deviation 39.9 fL (36.4-46.3); Red Blood Count 3.75 M/uL (4.7-6.1); White Blood Count 9.61 K/uL (4.8-10.8)
[2021-04-02 08:16] LABS: BUN Creatinine Ratio 11.6 (10-20); Calcium 8.9 mg/dl (8.5-10.1); Creatinine Clr Calc Pharmacy 108.5 ml/min; Est GFR (African American) 138.1 ml/min; Est GFR (Non-African American) 119.2 ml/min; Potassium 3.9 mmol/L (3.5-5.1)
[2021-04-02] MEDS: DOCUSATE SODIUM 100 MG CAP PO SCH ×2 (09:09→20:38)
[2021-04-02] MEDS: MULTIVITAMIN TAB PO SCH (09:09)
--- NOTE | 2021-04-02 13:39 | Hospitalist Progress Note ---
Date of Service April 02, 2021 Assessment & Plan (1) Septic infrapatellar bursitis of right knee: Plan: Continue vancomycin and ceftriaxone. Blood cultures negative to date. Bedside wound and surgical culture growing staphylococcus species, awaiting full identification and sensitivities prior to discharge Acetaminophen and Dilaudid for pain. TDaP prior to discharge Appreciate orthopedics consult management. POD #1 I&D prepatellar bursa Admission and Anticipated Discharge Date Admission Date: March 30, 2021 Subjective Using die maintenance. Patient feeling well. No further fever or chills. No further cramping. Mild tingling around operation site but otherwise unremarkable. Patient concerned regarding payments as he doesn't have insurance, asks about workers compensation which will pass on to case loader operator to see if they can help with this. Review of Systems Review of Systems: All systems reviewed & are unremarkable except as noted in HPI & below Physical Exam Constitutional: WD/WN, vitals as above Eyes: + anicteric sclerae; normal pupil size ENMT: Mouth: oral mucous membranes not dry Neck: trachea midline, no thyromegaly Respiratory: normal respiratory effort, lungs clear to auscultation Cardiovascular: RRR, no murmur, no edema Gastrointestinal (Abdomen): normal bowel sounds, soft, nontender, no hepatosplenomegaly Musculoskeletal: Surgical dressing not removed. Clean dry intact. NV intact distally in right foot beyond dressing. Psychiatric: A+Ox3, euthymic affect Results & Data Results & Data ([facility]) Vital Signs (Past 12 Hours) Vital Signs Temp Pulse Resp BP Pulse Ox 04/02/21 07:23 36.8 C 59 L 18 107/63 98 04/02/21 03:46 36.6 C 73 16 103/66 98 PG Care Time/CCT Total # of Minutes Spent Total Time Spent with Patient: Total time spent is greater than 50% in coordination of care (as documented) at patient's floor/unit and/or counseling patient: Coding Level of Care Code 82649 Subseq Hosp Care Lvl 2 Diagnoses Septic infrapatellar bursitis of right knee M71.161; B96.89
[2021-04-02] MEDS: cefTRIAXone SODIUM 1,000 MG in DEXTROSE 5% 50 ML IV SCH (13:53)
--- NOTE | 2021-04-02 14:19 | Orthopedic Progress Note ---
Date of Service April 02, 2021 Assessment & Plan (1) Septic infrapatellar bursitis of right knee: Plan: POD #1 s/p I&D right knee septic infrapatellar bursitis dressing changed today, packing removed Continue vancomycin and ceftriaxone, blood cultures negative to date. Bedside wound and surgical culture growing staphylococcus species, awaiting full identification and sensitivities prior to d/c pain well controlled treatment discussed with patient through instrument technician apprentice, no questions or concerns at this time. cont with IV Abx Admission and Anticipated Discharge Date Admission Date: March 30, 2021 Subjective POD #1 s/p I&D right knee septic prepatellar bursitis communication noted through instrument technician apprentice service. all questions answered Review of Systems Constitutional: no fever and no chills Cardiovascular: no chest pain and no dyspnea Gastrointestinal: no nausea and no vomiting Physical Exam Physical Exam: Vital Signs Temp Pulse Pulse Resp BP Pulse Ox 04/02/21 07:23 36.8 C 59 L 18 107/63 98 04/02/21 03:46 36.6 C 73 16 103/66 98 04/01/21 22:42 36.7 C 56 L 20 119/73 98 04/01/21 21:11 36.7 C 54 L 22 111/69 96 04/01/21 20:14 36.7 C 62 20 117/55 L 95 04/01/21 19:19 35.8 C L 69 22 110/60 96 04/01/21 18:45 36.7 C 81 20 116/65 96 04/01/21 18:15 36.7 C 74 20 124/76 95 04/01/21 18:00 36.7 C 69 20 128/74 94 04/01/21 17:45 36.8 C 66 20 134/77 96 04/01/21 17:20 67 16 119/68 99 04/01/21 17:10 36.4 C L 64 16 128/81 99 04/01/21 17:00 70 16 134/71 100 04/01/21 16:52 36.5 C 68 12 121/73 100 04/01/21 15:02 37.1 C 79 16 136/62 97 Intake and Output 04/01/21 04/02/21 04/02/21 22:59 06:59 14:59 Intake Total 3335.417 / 5893.75 0 1525 / 5893.750 Output Total 3 / 479 1 / 479 Balance 3332.417 / 5414.75 0 1524 / 5414.750 Intake: IV 1475.417 / 3733.75 0 1225 / 3733.750 Sodium Chlor 0 .45% + 20Meq KCl 935.417 / 1918.750 20 meq In 1,00 0 ml @ 125 mls/hr IV .Q8H DIO Rx #:[id number] Sodium Chlorid e 0.9% 1000ML 1, 955 / 955 000 ml @ 100 m ls/hr IV .Q10H DIO Rx#:[id number] Vancomycin HCl 1,000 mg In 540 / 810 270 / 810 Sodium Chlorid e 0.9% 250 ml @ 200 mls/hr IV Q8H DIO Rx#: [id number] IV Perioperative 900 / 900 Oral 960 / 1260 300 / 1260 Output: Estimated Blood Loss # Bowel Movement s Other: # Unmeasured Voi ds 1 1 Musculoskeletal: Right knee: dressing removed, packing removed. skin edges loosely approximated with nylon sutures. there is mild erythema noted just di stal and lateral to the incision. minimal swelling noted. calf SNT. able to wiggle toes/ankle without pain. thigh soft non tender Results & Data ([facility]) Vital Signs (Past 12 Hours) Vital Signs Temp Pulse Resp BP Pulse Ox 04/02/21 07:23 36.8 C 59 L 18 107/63 98 04/02/21 03:46 36.6 C 73 16 103/66 98 Laboratory Results Laboratory Results WBC 9.61 K/uL (4.8-10.8) 04/02/21 07:05 RBC 3.75 M/uL (4.7-6.1) L 04/02/21 07:05 Hgb 12.5 g/dL (14.0-18.0) L 04/02/21 07:05 Hct 35.8 % (42-52) L 04/02/21 07:05 MCV 95.5 fL (80-100) 04/02/21 07:05 MCH 33.3 pg (25-34) 04/02/21 07:05 MCHC 34.9 g/dL (32-36) 04/02/21 07:05 RDW Std Deviation 39.9 fL (36.4-46.3) 04/02/21 07:05 RDW Coeff of Nahid 11.5 % (11.5-14.5) 04/02/21 07:05 Plt Count 295 K/uL (130-400) 04/02/21 07:05 MPV 10.0 fL (7.4-10.4) 04/02/21 07:05 Immature Gran % (Auto) 0.2 % 04/01/21 05:59 Neut % (Auto) 74.7 % 04/01/21 05:59 Lymph % (Auto) 16.2 % 04/01/21 05:59 [place] % (Auto) 8.3 % 04/01/21 05:59 Eos % (Auto) 0.5 % 04/01/21 05:59 Baso % (Auto) 0.1 % 04/01/21 05:59 Neut # (Auto) 11.00 K/uL (1.4-6.5) H 04/01/21 05:59 Lymph # (Auto) 2.38 K/uL (1.2-3.4) 04/01/21 05:59 [place] # (Auto) 1.22 K/uL (0.11-0.59) H 04/01/21 05:59 Eos # (Auto) 0.08 K/uL (0-0.5) 04/01/21 05:59 Baso # (Auto) 0.02 K/uL (0-0.2) 04/01/21 05:59 Immature Gran # (Auto) 0.03 K/uL (0.00-0.02) H 04/01/21 05:59 ESR 29 mm/hr (0-15) H 03/30/21 11:09 PT 9.8 Seconds (9.0-12.0) 03/30/21 11:09 INR 1.0 (0.9-1.1) 03/30/21 11:09 APTT 27.2 Seconds (21.0-31.0) 03/30/21 11:09 PTT Ratio 1.0 03/30/21 11:09 Sodium 138 mmol/L (136-145) 04/02/21 07:05 Potassium 3.9 mmol/L (3.5-5.1) 04/02/21 07:05 Chloride 105 mmol/L (98-107) 04/02/21 07:05 Carbon Dioxide 27 mmol/L (21-32) 04/02/21 07:05 Anion Gap 6.0 (3-11) 04/02/21 07:05 BUN 8 mg/dl (7-18) 04/02/21 07:05 Creatinine 0.72 mg/dl (0.6-1.4) 04/02/21 07:05 Est Cr Clr Drug Dosing 108.5 ml/min 04/02/21 07:05 Est GFR ( Amer) 138.1 ml/min 04/02/21 07:05 Est GFR (Non-Af Amer) 119.2 ml/min 04/02/21 07:05 BUN/Creatinine Ratio 11.6 (10-20) 04/02/21 07:05 Glucose 84 mg/dl (70-99) 04/02/21 07:05 Lactate 1.3 mmol/L (0.4-2.0) 03/30/21 11:22 Calcium 8.9 mg/dl (8.5-10.1) 04/02/21 07:05 Magnesium 2.3 mg/dl (1.8-2.4) 03/30/21 11:09 Total Bilirubin 0.7 mg/dl (0.2-1) 04/01/21 05:59 AST 30 U/L (15-37) 04/01/21 05:59 ALT 84 U/L (12-78) H 04/01/21 05:59 Alkaline Phosphatase 103 U/L (45-117) 04/01/21 05:59 C-Reactive Protein 14.10 mg/dl (0-0.29) H 03/30/21 11:09 Total Protein 7.3 gm/dl (6.4-8.2) 04/01/21 05:59 Albumin 3.0 gm/dl (3.4-5.0) L 04/01/21 05:59 Globulin 4.3 gm/dl (2.5-4.0) H 04/01/21 05:59 Albumin/Globulin Ratio 0.7 (0.9-2) L 04/01/21 05:59 Vancomycin Trough 7.8 mcg/ml (See Comment) 04/01/21 11:31 COVID-19 Eval Order Covid19 at [facility] 03/30/21 12:34 SARS-CoV-2 (PCR) NEGATIVE (Negative) 03/30/21 12:34 Impressions Knee X-Ray 03/30/21 10:28 XR knee RT 1 or 2V routine CLINICAL HISTORY: right knee pain, ? bursitis COMPARISON: None FINDINGS: Alignment of the right knee is anatomic. No acute fracture. There is no osseous lesion. There may be a small joint effusion. Joint spaces are preserved. Note is made of pre and infrapatellar soft tissue swelling, most pronounced overlying the tibial tubercle. IMPRESSION: 1. No acute fracture. No osseous abnormality of the right knee. 2. Possible small right knee joint effusion. 3. Pre and infrapatellar soft tissue swelling. This may reflect bursitis. ACT 112: Negative or not required by law. Electronically signed by: Mike Zapata M.D. 03/30/2021 10:41 AM 04/01/21 Unknown Gram Stain - Final Knee,Right 04/01/21 Unknown Gram Stain - Final Knee,Right 03/30/21 11:03 Anaerobic Blood Culture - Final Blood
[2021-04-02] MEDS: SENNA 8.6 MG TAB PO SCH (20:38)
[2021-04-02] MEDS: oxyCODONE HCL IR 5 MG TAB (IMMEDIATE RELEASE) PO PRN (22:46)
[2021-04-03] MEDS ORDERED: VANCOMYCIN TROUGH ONE (04:30)
[2021-04-03] MEDS: VANCOMYCIN HCL 1,000 MG in SODIUM CHLORIDE 0.9% 250 ML IV SCH ×3 (05:51→21:49)
[2021-04-03] MEDS: MULTIVITAMIN TAB PO SCH (08:52)
[2021-04-03] MEDS: DOCUSATE SODIUM 100 MG CAP PO SCH ×2 (08:52→21:55)
--- NOTE | 2021-04-03 09:28 | Pharmacy Report ---
Pharmacy Abx Dose Short Note - Date of Service April 03, 2021 - Assessment & Plan Assessment 35 year old M receiving Vancomycin 1000 mg IV q8h for treatment of R knee septic bursitis. Day #5 of antimicrobial therapy. Trough was drawn this AM after 5 doses of current dosing regimen. So today's trough is at steady state. Laboratory Tests 04/03/21 04:09 Vancomycin Trough 14.3 Plan Vancomycin * Trough level of 14.3 mcg/mL is therapeutic. Extrapolated true trough is 13.9 mcg/ml. * It corresponds to an AUC of 517. Goal AUC is 400-600. For bursitis, target the higher end of range. * Current Vanc regimen has 95% probability of achieving AUC > 400, with only 9% probability of toxicity. * t1/2 = 5.1 hrs. * Continued dose of 1000 mg IV every 8 hours. * Plan to re-check trough in 3 to 5 days if patient is still admitted. Pharmacy will continue to follow and will adjust dose/frequency as necessary. Thank you.
--- NOTE | 2021-04-03 11:32 | Orthopedic Progress Note ---
Date of Service April 03, 2021 Assessment & Plan (1) Septic infrapatellar bursitis of right knee: Plan: POD #2 s/p I&D right knee septic infrapatellar bursitis MRSA noted on culture. Ceftriaxone discontinued and patient continued on IV vancomycin. Would likely benefit from 1 more day of IV vancomycin. Then plan to gear changer to oral antibiotics for likely discharge tomorrow. Case discussed with Dr. Borges. pain well controlled Continue daily dressing changes. Admission and Anticipated Discharge Date Admission Date: March 30, 2021 Subjective Patient sleeping upon arrival. Easily awoken. Nursing present. Talk to the patient through program services assistant application. Patient states he is feeling better today and essentially has no pain. He states that he did notice some lymphadenopathy in the groin. He denies pain there. No other complaints at this time. Physical Exam Physical Exam: He continues to have some mild erythema around the edges of the wound itself. The larger section of erythema that was lateral and distal is resolving nicely. He has some scant drainage noted on the dressing and near the open portion of the wound. No gross purulence noted. Calves are soft nontender. Neurovascular is intact. Toes are mobile. He is nontender on palpation of the thigh into the groin. Results & Data ([facility]) Vital Signs (Past 12 Hours) Vital Signs Temp Pulse Resp BP Pulse Ox 04/03/21 08:11 37 C 78 16 150/85 H 98 Diagnostic Findings Name: JASPER MCMULLEN Acct: [id number] Status: [place] 1985 [facility] [place]: 03/30/21 Age: 35 Sex: M Dis Date: Loc: Medical/Surgical/Ortho [address] [place] [id number] Collected: 04/01/21-UNK Received: 04/01/[address]: Osmin Mccoy, PANataliiaC Copy To: Luigi Garcia M.D. Source: Knee,Right OV Order: Ordered: Aer/Esme Cult/Sm Comments: Comment Right Prepatellar Bursa Procedure Result Verified Site Gram Stain Final 04/01/21-1236 Gram Stain Result Rare Epithelial Cells Rare WBCs Seen Rare Gram Positive Cocci Aero/Esme Cult Preliminary 07/22/21-0656 Organism 1 Staph aureus MRSA Quantity Moderate Sens Sensitivities to Follow MRSA RX M.I.C. --- --------- Clindamycin S <=0.5 Daptomycin S 1 Erythromycin S <=0.5 Oxacillin R >2 Rifampin S <=1 Tetracycline S <=4 Trimeth/Sulfa S <=0.5/9.5 Vancomycin S 2 S = SENSITIVE I = INTERMEDIATE R = RESISTANT
[2021-04-03] MEDS: cefTRIAXone SODIUM 1,000 MG in DEXTROSE 5% 50 ML IV SCH (12:25)
--- NOTE | 2021-04-03 17:25 | Hospitalist Progress Note ---
Date of Service April 03, 2021 Assessment & Plan (1) Septic infrapatellar bursitis of right knee: Plan: Continue vancomycin. Discontinued ceftriaxone due to MRSA grown in wound cultures. Blood cultures negative to date. Wound and surgical culture growing MRSA Acetaminophen and Dilaudid PRN for pain. TDaP prior to discharge Appreciate orthopedics consult management. POD #2 I&D prepatellar bursa Anticipate switch to Bactrim and discharge tomorrow if cleared by orthopedics Admission and Anticipated Discharge Date Admission Date: March 30, 2021 Subjective Communication using dipper and drier: No fevers or chills. Mild pain around operation site. but not distally. Discussed with orthopedics this morning and requested IV antibiotics for ad day. Review of Systems Review of Systems: All systems reviewed & are unremarkable except as noted in HPI & below Physical Exam Constitutional: WD/WN, vitals as above ENMT: Mouth: oral mucous membranes not dry Neck: trachea midline, no thyromegaly Respiratory: normal respiratory effort Musculoskeletal: Surgical dressing not removed. Clean dry intact. NV intact distally in right foot beyond dressing. Calves SNT. Psychiatric: A+Ox3, euthymic affect Results & Data Results & Data ([facility]) Vital Signs (Past 12 Hours) Vital Signs Temp Pulse Resp BP Pulse Ox 04/03/21 16:06 37.2 C 63 20 122/73 100 04/03/21 08:11 37 C 78 16 150/85 H 98 PG Care Time/CCT Total # of Minutes Spent Total Time Spent with Patient: Total time spent is greater than 50% in coordination of care (as documented) at patient's floor/unit and/or counseling patient: Coding Level of Care Code 04330 Subseq Hosp Care Lvl 1 Diagnoses Septic infrapatellar bursitis of right knee M71.161; B96.89
[2021-04-03] MEDS: SENNA 8.6 MG TAB PO SCH (21:55)
[2021-04-04] MEDS: oxyCODONE HCL IR 5 MG TAB (IMMEDIATE RELEASE) PO PRN (03:53)
[2021-04-04] MEDS: VANCOMYCIN HCL 1,000 MG in SODIUM CHLORIDE 0.9% 250 ML IV SCH ×2 (05:36→14:02)
[2021-04-04] MEDS: DOCUSATE SODIUM 100 MG CAP PO SCH (09:15)
[2021-04-04] MEDS: MULTIVITAMIN TAB PO SCH (09:21)
--- NOTE | 2021-04-04 14:07 | Discharge Summary ---
Date of Service April 04, 2021 Admission HPI Per Admitting Provider Slovenian speaking patient arrives to ER with subjective fever and right knee pain. 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 He reports he noticed his right knee became irritated on Wednesday and slowly this progress. He noticed the right knee has become red and tender to touch. He reports when he is working, he puts his knoee on the ground and he felt that a metal on the ground may have scretched his knee. He used Tylenol for pain this morning. Denies any allergies not had the Covid vaccine. No numbness or weakness. The pain is 7 out of 10 but goes to 10 out of 10 Admission Exam Per Admitting Provider Constitutional: WD/WN, vitals as above Eyes: PERRL, conjunctivae normal, anicteric sclerae ENMT: external ear and nose normal, oropharynx normal Neck: trachea midline, no thyromegaly Respiratory: normal respiratory effort, lungs clear to auscultation Cardiovascular: RRR, no murmur, no edema Gastrointestinal (Abdomen): normal bowel sounds, soft, nontender, no hepatosplenomegaly Musculoskeletal: no cyanosis or clubbing, extremities motor strength 5/5 (redness around right infrapatellar bursa, tender to palpation.) Skin: + lesion (as noticed above. erlinda cut on prepatellar bursa) Neurologic: PERRL, EOMI, accommodation nl, no face palsy, no dysarthria Psychiatric: A+Ox3, euthymic affect Genitourinary: no testicular masses, no penis abnormality Principal Diagnosis Septic prepatellar bursitis Discharge Exam Constitutional WD/WN, vitals as above Eyes + anicteric sclerae; normal pupil size ENMT Mouth: oral mucous membranes not dry Neck trachea midline, no thyromegaly Respiratory normal respiratory effort, lungs clear to auscultation normal respiratory effort Cardiovascular RRR, no murmur, no edema Gastrointestinal (Abdomen) normal bowel sounds, soft, nontender, no hepatosplenomegaly Psychiatric A+Ox3, euthymic affect Discharge Data Allergies Allergy/AdvReac Type Severity Reaction Status Date / Time No Known Allergies Allergy Unverified 03/30/21 10:40 Consultations 03/30/21 13:44 ED Decision to Admit Stat 03/30/21 16:18 Consult Orthopedic Surgery Routine Procedures Performed Operation Date: 03/31/21 07:00 <No data on this case meets the specified criteria> Operation Date: 04/01/21 13:40 Actual Procedures p Right Incision and Drainage Prepatellar Septic Bursitis, with Packing(Right) - Louie Coffman DO Hospital Course (1) Septic infrapatellar bursitis of right knee: Lonnie Nuno is a 35 year old male admitted to [facility] from March 30-2020 due to septic bursitis. This was treated with IV ceftriaxone and vancomycin and incision and drainage performed by Dr Coffman on April 01, 2021. Wound culture grew MRSA (methicillin resistant staphylococcus aureus) and he was continued on vancomycin alone. Blood cultures were negative. He was switched to Bactrim DS for a further 6 days on discharge. Total Time Total Time Spent Total Time Spent (In Minutes): 35 Discharge Plan Discharge Items Patient Disposition: Home - Self-Care Reason For Visit: SEPTIC BURSITIS Discharge Diagnosis: Septic prepatellar bursitis Activity: Per Instructions section Non-emergency contact: Surgeon Call non-emergency contact if: you have any medication questions, your symptoms worsen and your temperature is above 101 Follow-up/Referrals: Louie Coffman DO [Surgeon] - (Follow-up with Dr Coffman on April 15 at 10:00 AM for a wound check. ) PCP,NO [Primary Care Provider] - Diet: Regular Addtl Attending Provider Instructions: You were admitted to [facility] from March 30-2020 due to septic bursitis. This was treated with intravenous antibiotics and incision and drainage performed by Dr Coffman on April 01, 2021. Wound culture grew MRSA (methicillin resistant staphylococcus aureus). Blood cultures were negative. Please continue on antibiotics for a further 6 days. Please see additional instruction from your surgeon below. Fue admitido en [facility] del al 2020 debido a lennox bursitis sptica. [place] se trat con antibiticos intravenosos y el Dr. Coffman realiz lennox incisin y un drenaje el 2020. El cultivo de la herida desarroll MRSA (Staphylococcus aureus resistente a la meticilina). Los hemocultivos fueron negativos. Contine con antibiticos chuy 6 sotelo ms. Consulte las instrucciones adicionales de merchant cirujano a continuacin. Addtl Operating Table Assembler Provider Instructions: Weightbearing as tolerated Continue daily dressing changes. Keep the dressings clean and dry. Light duty for work at this time to discourage moderate perspiration gathering around the wound. You may shower if you keep a waterproof covering around the dressing or wound. No showers to the wound/knee until the wound has fully closed. Follow-up with Dr. Coffman on April 15, 2021 at 10 AM for suture removal and wound check. If you will not be in the [facility] at that time, please arrange to see a physician for wound check and suture removal within 10 to 14 days from the day of surgery. Soporte de peso segn lo tolerado Contine con los cambios diarios de apsitos. Mantenga los apsitos limpios y secos. Trabajo ligero para el trabajo en candie momento para disuadir la transpiracin moderada que se acumula alrededor de la herida. Puede ducharse si mantiene lennox cubierta impermeable alrededor del apsito o la herida. No duches en la herida / rodilla hasta que la herida se haya cerrado por completo. Adryan un seguimiento con el Dr. Coffman el o 2020 a las 10 a. M. Para retirar la sutura y revisar la herida. Si no estar en el estado de [place] en eliza momento, adryan arreglos para dianelys a un mdico para que revise la herida y retire las suturas dentro de los 10 a 14 sotelo posteriores al da de la ciruga. Pending Studies at Discharge: No Stand-Alone Forms: [employer], Smoking Cessation Medications and DC Order Prescriptions: New sulfamethoxazole-trimethoprim [Bactrim DS] 800-160 mg tablet 1 tab PO BID 6 Days Qty: 12 RF: 0 Continued acetaminophen [Tylenol Arthritis Pain] 650 mg Tablet Extended Release 1,300 mg PO Q12H PRN (Reason: Pain) RF: 0 Discharge Orders: Discharge Order (Routine); Ordered 04/04/21 Ordered By: Drake Correia/Other Patient Handouts: How Your Knee Works, What Is Bursitis?, ED Bursitis Admission Data Admit Date/Time: 03/30/21 16:22 Attending Provider: Drake Borges Admit Provider: Luigi aGrcia Primary Care Provider: PCP,NO Other Providers: Luigi Garcia ; Kapil Sauceda Other Interventions: Discharge Summary Assessment (RN) Last Done: 04/04/21 15:29 Coding Level of Care Code D/C DAY MANAGEMENT >30 MINS Diagnoses Septic infrapatellar bursitis of right knee M71.161; B96.89
--- NOTE | 2021-04-04 14:53 | Orthopedic Progress Note ---
Date of Service April 04, 2021 Assessment & Plan (1) Septic infrapatellar bursitis of right knee: Plan: POD #2 s/p I&D right knee septic infrapatellar bursitis MRSA noted on culture. Ceftriaxone discontinued and patient continued on IV vancomycin. Continued improvement pain well controlled Continue daily dressing changes. Plan for dc to home today on po antibx. Admission and Anticipated Discharge Date Admission Date: March 30, 2021 Subjective No new complaints. Pt doing well. Discussed case with Dr Borges. Planning for dc to home today. Physical Exam Physical Exam: Wound continues to approve. No purulent drainage. Erythema and swelling continue to improve. Calves soft, NT. NV intact. Results & Data ([facility]) Vital Signs (Past 12 Hours) Vital Signs Temp Pulse Resp BP Pulse Ox 04/04/21 14:43 36.9 C 59 L 16 119/75 97 04/04/21 07:19 36.8 C 68 16 148/82 H 96
== END 2021-04-04 16:16 | disposition home or self-care (01) | DRG 502 ==
LOC: ED 10:08 → 3W 16:22 → SUATTDRO 16:22 → 3W 17:41